=== PATIENT | female | born 1995 | race African-American/Black ===

== ENCOUNTER 2019-07-26 19:52 | Emergency (ER) | payer BC, OTHER ==
[~2019-07-26] VITALS: Ht 149 cm; Wt 53.0 kg
[2019-07-26 20:55] LABS: BILIRUBIN,URINE NEGATIVE (NEGATIVE); CLARITY,URINE CLEAR; COLOR,URINE YELLOW; GLUCOSE, URINE (UA) NEGATIVE (NEGATIVE); KETONES,URINE NEGATIVE (NEGATIVE); LEUKOCYTE ESTERASE ,URINE 1+ (NEGATIVE); NITRITE,URINE NEGATIVE (NEGATIVE); PH,URINE 7 (5-9); PROTEIN,URINE NEGATIVE (NEGATIVE)
--- NOTE | 2019-07-26 21:11 | ED Neurological Problem ---
General Chief Complaint: Neurological Problems Stated Complaint: TINGLING IN ARMS/HANDS/LEGS Nursing Triage Note: PATIENT STATES THAT SHE WENT TO [facility] MONDAY AND YESTERDAY FOR TINGLING IN LEGS. THEY PRESCRIBED PREDNIDONE AND TOLD HER IT COULD BE SCIATICA. SHE IS NOW HAVING A TINGLING AND BURNING SENSATION IS VARIOUS OTHER LOCATIONS ON HER BODY AND SHE IS VERY CONCERNED. DENIES ANY OTHER SYMPTOMS. Nursing Sepsis Screen: No Definite Risk Source: patient Exam Limitations: no limitations History of Present Illness Date Seen by Provider: Jul 26, 2019 Time Seen by Provider: 21:10 Initial Comments To ER with reports of tingling in her arms legs and hands. This began one week ago with tingling in the left leg only. She was seen at [facility] and given a prescription for steroids for presumed sciatica. The next day of the tingling sensation spread to the right leg and since then it now includes both hands from the shoulders down. She popped her neck a lot she states, she does have some pain at the base of the right side of her neck. No headaches no confusion. No other systemic symptoms such as weakness malaise shortness of breath fevers or chills. She does not know anything about her family history, she denies any known personal history of illnesses aside from iron deficiency anemia Timing/Duration: 1 week Severity: moderate Associated Symptoms: numbness in legs/feet Allergies and Home Medications Allergies Coded Allergies: No Known Drug Allergies (Unverified , 07/26/19) Patient Home Medication List Home Medication List Reviewed: Yes Review of Systems Review of Systems Constitutional: see HPI Eyes: No Symptoms Reported Ears, Nose, Mouth, Throat: no symptoms reported Respiratory: no symptoms reported Cardiovascular: no symptoms reported Genitourinary: no symptoms reported (the) Past Famnktk-Nnaocr-Wvpbcz Hx Patient Social History Alcohol Use: Occasionally Uses Recreational Drug Use: No Smoking Status: Never a Smoker 2nd Hand Smoke Exposure: No Recent Foreign Travel: No Contact w/Someone Who Travel: No Recent Infectious Disease Expo: No Recent Hopitalizations: No Seasonal Allergies Seasonal Allergies: No Past Medical History Surgeries: No Respiratory: No Cardiac: No Neurological: No Genitourinary: No Gastrointestinal: No Musculoskeletal: No Endocrine: No HEENT: No Cancer: No Psychosocial: No Integumentary: No Physical Exam Vital Signs Vital Signs - First Documented 07/26/19 20:08 Pulse 81 Resp 20 B/P (MAP) 142/88 (106) Pulse Ox 100 Capillary Refill : Less Than 3 Seconds Height, Weight, BMI Height: '" Weight: lbs. oz. kg; 23.00 BMI Method: General Appearance: WD/WN, no apparent distress, other (mentating well, very pleasant alert and oriented no distress) HEENT: PERRL/EOMI, normal ENT inspection Neck: non-tender, full range of motion Respiratory: normal breath sounds, no respiratory distress, no accessory muscle use Cardiovascular: regular rate, rhythm, no murmur Gastrointestinal: normal bowel sounds, non tender, soft Extremities: normal range of motion, non-tender Neurologic/Psychiatric: alert, normal mood/affect, oriented x 3 Crainal Nerves: normal hearing, normal speech, PERRL Skin: normal color, warm/dry Progress/Results/Core Measures Results/Orders Lab Results Laboratory Tests Test 07/26/19 20:34 07/26/19 21:11 Range/Units Urine Color YELLOW Urine Clarity CLEAR Urine pH 7 5-9 Urine Specific Woodson 1.010 L 1.016-1.022 Urine Protein NEGATIVE NEGATIVE Urine Glucose (UA) NEGATIVE NEGATIVE Urine Ketones NEGATIVE NEGATIVE Urine Nitrite NEGATIVE NEGATIVE Urine Bilirubin NEGATIVE NEGATIVE Urine Urobilinogen NORMAL NORMAL MG/DL Urine Leukocyte Esterase 1+ H NEGATIVE Urine RBC (Auto) NEGATIVE NEGATIVE Urine RBC NONE /HPF Urine WBC 2-5 /HPF Urine Squamous Epithelial Cells 2-5 /HPF Urine Crystals PRESENT H /LPF Urine Amorphous Sediment FEW MARLYS PHOSPHATE H /LPF Urine Bacteria TRACE /HPF Urine Casts NONE /LPF Urine Mucus NEGATIVE /LPF Urine Culture Indicated NO White Blood Count 4.6 4.3-11.0 10^3/uL Red Blood Count 3.79 L 4.35-5.85 10^6/uL Hemoglobin 7.3 L 11.5-16.0 G/DL Hematocrit 25 L 35-52 % Mean Corpuscular Volume 65 L 80-99 FL Mean Corpuscular Hemoglobin 19 L 25-34 PG Mean Corpuscular Hemoglobin Concent 30 L 32-36 G/DL Red Cell Distribution Width 18.9 H 10.0-14.5 % Platelet Count 526 H 130-400 10^3/uL Mean Platelet Volume 10.7 H 7.4-10.4 FL Neutrophils (%) (Auto) 46 42-75 % Lymphocytes (%) (Auto) 44 12-44 % Monocytes (%) (Auto) 8 0-12 % Eosinophils (%) (Auto) 2 0-10 % Basophils (%) (Auto) 0 0-10 % Neutrophils # (Auto) 2.1 1.8-7.8 X 10^3 Lymphocytes # (Auto) 2.0 1.0-4.0 X 10^3 Monocytes # (Auto) 0.4 0.0-1.0 X 10^3 Eosinophils # (Auto) 0.1 0.0-0.3 10^3/uL Basophils # (Auto) 0.0 0.0-0.1 10^3/uL Prothrombin Time 13.3 12.2-14.7 SEC INR Comment 1.0 0.8-1.4 Activated Partial Thromboplast Time 28 24-35 SEC Sodium Level 137 135-145 MMOL/L Potassium Level 3.8 3.6-5.0 MMOL/L Chloride Level 101 98-107 MMOL/L Carbon Dioxide Level 22 21-32 MMOL/L Anion Gap 14 5-14 MMOL/L Blood Urea Nitrogen 13 7-18 MG/DL Creatinine 0.78 0.60-1.30 MG/DL Estimat Glomerular Filtration Rate > 60 BUN/Creatinine Ratio 17 Glucose Level 103 70-105 MG/DL Calcium Level 9.9 8.5-10.1 MG/DL Corrected Calcium 9.6 8.5-10.1 MG/DL Total Bilirubin 0.2 0.1-1.0 MG/DL Aspartate Amino Transf (AST/SGOT) 13 5-34 U/L Alanine Aminotransferase (ALT/SGPT) 9 0-55 U/L Alkaline Phosphatase 56 40-136 U/L C-Reactive Protein High Sensitivity 0.03 0.00-0.50 MG/DL Total Protein 8.1 6.4-8.2 GM/DL Albumin 4.4 3.2-4.5 GM/DL Thyroid Stimulating Hormone (TSH) 3.68 0.35-4.94 UIU/ML Serum Test, Qualitative NEGATIVE NEGATIVE My Orders Orders - ABHISHEK STRAUSS APRN Cbc With Automated Diff (07/26/19 20:47) Hs C Reactive Protein (07/26/19 20:47) Comprehensive Metabolic Panel (07/26/19 20:47) Thyroid Stimulating Hormone (07/26/19 20:47) Ua Culture If Indicated (07/26/19 20:47) Ed Iv/Invasive Line Start (07/26/19 20:47) Hcg,Qualitative Serum (07/26/19 20:47) Ct Cervical Spine Wo (07/26/19 21:40) Anemia Analyzer (07/26/19 21:49) Partial Thromboplastin Time (07/26/19 21:49) Protime With Inr (07/26/19 21:49) Ferrous Sulfate Tablet (Feosol Tablet) (07/26/19 22:00) Vital Signs/I&O 07/26/19 20:08 Pulse 81 Resp 20 B/P (MAP) 142/88 (106) Pulse Ox 100 Blood Pressure Mean: 106 Departure Communication (Admissions) Discussed the case with Dr. Navarro. Blood transfusion not warranted as she is hemodynamically stable without shortness of breath or weakness, only complaint is of paresthesia. She has no hypotension or tachycardia. She reports that she is supposed to be on iron supplementation due to heavy periods but doesn't take it because it constipates her. She does take control simply for the reason of heavy vaginal bleeding with periods. Just moved here in the October of this year and follows tanya Malloy at [facility]. Impression Primary Impression: Microcytic anemia Additional Impression: Paresthesias Disposition: HOME, SELF-CARE Condition: Stable Departure-Patient Inst. Decision time for Depature: 22:04 Referrals: NO,LOCAL PHYSICIAN (PCP/Family) Primary Care Physician Patient Instructions: Paresthesias (DC), Anemia Caused by Low Iron Add. Discharge Instructions: 1. You must take your iron supplementation. Take this with orange juice to help with the absorption. Take a stool softener like Colace [id number] once daily to help soften her stools and prevent the associated constipation. You should have your blood work rechecked next week at [facility] to recheck your hemoglobin level. Return to ER in the meantime for any worsening symptoms shortness of breath fatigued or heavy bleeding. Scripts Ferrous Fumarate (Ferrimin 150) 456 Mg Tablet 456 MG PO DAILY, #30 TAB Prov: ABHISHEK STRAUSS APRN 07/26/19 Copy Copies To 1: NAM PULIDO PETER J APRN Jul 26, 2019 21:11
[2019-07-26 21:13] LABS: BACTERIA,URINE TRACE /HPF
[2019-07-26 21:14] LABS: AMORPHOUS SEDIMENT,UR FEW AMOR PHOSPHATE /LPF
[2019-07-26 21:17] LABS: BASOPHILS % (AUTO) 0 % (0-10); EOSINOPHILS # (AUTO) 0.1 10^3/uL (0.0-0.3); EOSINOPHILS % (AUTO) 2 % (0-10); HEMATOCRIT 25 % (35-52); HEMOGLOBIN 7.3 G/DL (11.5-16.0); LYMPHOCYTES % (AUTO) 44 % (12-44); MEAN CORPUSCULAR HEMOGLOBIN 19 PG (25-34); MEAN CORPUSCULAR HGB CONC 30 G/DL (32-36); MEAN CORPUSCULAR VOLUME 65 FL (80-99); MEAN PLATELET VOLUME 10.7 FL (7.4-10.4); MONOCYTES # (AUTO) 0.4 X 10^3 (0.0-1.0); MONOCYTES % (AUTO) 8 % (0-12); NEUTROPHILS # (AUTO) 2.1 X 10^3 (1.8-7.8); NEUTROPHILS % (AUTO) 46 % (42-75); PLATELET COUNT 526 10^3/uL (130-400); RED CELL DISTRIBUTION WIDTH 18.9 % (10.0-14.5); WHITE BLOOD COUNT 4.6 10^3/uL (4.3-11.0)
[2019-07-26 21:37] LABS: ALANINE AMINOTRANSFERASE 9 U/L (0-55); ALBUMIN 4.4 GM/DL (3.2-4.5); ALKALINE PHOSPHATASE 56 U/L (40-136); BILIRUBIN,TOTAL 0.2 MG/DL (0.1-1.0); BUN/CREATININE RATIO 17; CALCIUM 9.9 MG/DL (8.5-10.1); CARBON DIOXIDE 22 MMOL/L (21-32); CHLORIDE 101 MMOL/L (98-107); CREATININE SERUM 0.78 MG/DL (0.60-1.30); GFR ESTIMATED > 60; GLUCOSE 103 MG/DL (70-105); POTASSIUM 3.8 MMOL/L (3.6-5.0); SODIUM 137 MMOL/L (135-145); TOTAL PROTEIN 8.1 GM/DL (6.4-8.2)
--- NOTE | 2019-07-26 21:54 | NUR ---
PT RETURNS FROM CT DEPT.
--- NOTE | 2019-07-26 21:57 | Diagnostic Imaging Report ---
PROCEDURE: CT cervical spine without contrast. TECHNIQUE: Multiple contiguous axial images were obtained through the cervical spine without the use of intravenous contrast. Sagittal and coronal reformations were then performed. Auto Exposure Controls were utilized during the CT exam to meet ALARA standards for radiation dose reduction. INDICATION: Burning and tingling sensation throughout body. FINDINGS: Sagittal and coronal reformatted images show good alignment of the cervical spine. Body heights and disc spaces are well-maintained. Atlantoaxial joint appears normal. The facets show good alignment. There are no hypertrophic bony changes. No spinal stenosis. There are no fractures. The surrounding soft tissues appear normal. IMPRESSION: Negative CT scan of the cervical spine without contrast. Dictated by: Dictated on workstation # [id number]
[2019-07-26] MEDS ORDERED: FERROUS SULF 325 MG (IRON) TAB PO SCH (22:00)
[2019-07-26 22:03] LABS: PROTHROMBIN TIME PATIENT 13.3 SEC (12.2-14.7)
[2019-07-26] MEDS ORDERED: [UNRECOGNIZED DRUG - CODE] PO (22:20)
[2019-07-26 22:26] VITALS: BP 139/95
== END 2019-07-26 22:29 | disposition home or self-care (01) ==
LOC: ER 19:54
DX: D50.9 Iron deficiency anemia, unspecified (principal); R20.2 Paresthesia of skin
CPT/HCPCS: 36415; 72125; 80053; 81000; 84443; 84703; 85007; 85025; 85045; 85610; 85730; 86141

== ENCOUNTER 2019-10-18 15:38 | Outpatient (RCR) | payer BC ==
[2019-10-16 16:40] LABS: BASOPHILS % (AUTO) 0 % (0-10); EOSINOPHILS % (AUTO) 1 % (0-10); HEMATOCRIT 39 % (35-52); LYMPHOCYTES # (AUTO) 1.3 X 10^3 (1.0-4.0); LYMPHOCYTES % (AUTO) 38 % (12-44); MEAN CORPUSCULAR HEMOGLOBIN 28 PG (25-34); MEAN CORPUSCULAR HGB CONC 34 G/DL (32-36); MEAN CORPUSCULAR VOLUME 83 FL (80-99); MEAN PLATELET VOLUME 9.8 FL (7.4-10.4); MONOCYTES # (AUTO) 0.3 X 10^3 (0.0-1.0); MONOCYTES % (AUTO) 8 % (0-12); NEUTROPHILS # (AUTO) 1.8 X 10^3 (1.8-7.8); NEUTROPHILS % (AUTO) 53 % (42-75); PLATELET COUNT 198 10^3/uL (130-400); RED CELL DISTRIBUTION WIDTH 20.6 % (10.0-14.5); WHITE BLOOD COUNT 3.5 10^3/uL (4.3-11.0)
[2019-10-16 17:03] LABS: ALANINE AMINOTRANSFERASE 15 U/L (0-55); ALBUMIN 4.7 GM/DL (3.2-4.5); ALKALINE PHOSPHATASE 73 U/L (40-136); BILIRUBIN,TOTAL 0.2 MG/DL (0.1-1.0); BUN/CREATININE RATIO 14; CALCIUM 9.3 MG/DL (8.5-10.1); CARBON DIOXIDE 21 MMOL/L (21-32); CHLORIDE 106 MMOL/L (98-107); GFR ESTIMATED > 60; GLUCOSE 121 MG/DL (70-105); POTASSIUM 3.9 MMOL/L (3.6-5.0); SODIUM 136 MMOL/L (135-145); TOTAL PROTEIN 8.1 GM/DL (6.4-8.2)
[~2019-10-18 15:38] MED LIST: FERRIC CARBOXYMALTOSE (CANCER) 750 MG in NS (IVPB) CANCER CENTER 250 ML IV SCH; [UNRECOGNIZED DRUG - CODE] PO
[2019-11-13] MEDS ORDERED: PRD20T PO (22:37)
== END 2019-11-13 | disposition home or self-care (01) ==
LOC: ONC 15:38
PROVIDERS: ATTEND Internal Medicine Hematology & Oncology
DX: D50.0 Iron deficiency anemia secondary to blood loss (chronic) (principal)
CPT/HCPCS: 80053; 82728; 83540; 85025; 96365; 99213; 99214

== ENCOUNTER 2019-11-13 22:26 | Emergency (ER) | payer BC ==
[~2019-11-13] VITALS: Ht 150 cm; Wt 59.3 kg
[~2019-11-13 22:26] MED LIST changes: -FERRIC CARBOXYMALTOSE (CANCER) 750 MG in NS (IVPB) CANCER CENTER 250 ML IV SCH
--- NOTE | 2019-11-13 22:36 | ED Integumentary General ---
General Stated Complaint: RASH AFTER STARTING MED LAST NIGHT Source: patient Exam Limitations: no limitations History of Present Illness Date Seen by Provider: Nov 13, 2019 Time Seen by Provider: 22:34 Initial Comments Chemotherapy itchy rash to both forearms that began today after starting ibuprofen and "mucus relief" from [facility] for influenza A. Timing/Duration: this morning Severity: mild Associated Symptoms: rash Allergies and Home Medications Allergies Coded Allergies: No Known Drug Allergies (Unverified , 07/26/19) Home Medications Ferrous Fumarate 456 Mg Tablet, 456 MG PO DAILY Prescribed by: ABHISHEK STRAUSS on 07/26/190 Patient Home Medication List Home Medication List Reviewed: Yes Review of Systems Review of Systems Constitutional: see HPI EENTM: see HPI Respiratory: no symptoms reported Cardiovascular: no symptoms reported Genitourinary: no symptoms reported Musculoskeletal: no symptoms reported Skin: see HPI Psychiatric/Neurological: No Symptoms Reported Endocrine: No Symptoms Reported Past Ahnhyxi-Colbzo-Ctfays Hx Patient Social History 2nd Hand Smoke Exposure: No Recent Foreign Travel: No Contact w/Someone Who Travel: No Recent Hopitalizations: No Seasonal Allergies Seasonal Allergies: No Past Medical History Surgeries: No Respiratory: No Cardiac: No Neurological: No Genitourinary: No Gastrointestinal: No Musculoskeletal: No Endocrine: No HEENT: No Cancer: No Psychosocial: No Integumentary: No Physical Exam Vital Signs Capillary Refill : General Appearance: WD/WN, no apparent distress HEENT: PERRL/EOMI, normal ENT inspection Respiratory: no respiratory distress, no accessory muscle use Neurologic/Psychiatric: alert, normal mood/affect, oriented x 3 Skin: normal color, warm/dry Skin Problem Character: other (urticarial type rash to the volar aspect right elbow, right forearm, left wrist. No where else.) Progress/Results/Core Measures Results/Orders My Orders Orders - ABHISHEK STRAUSS APRN Diphenhydramine Tablet (Benadryl Tablet) (11/13/19 22:45) Prednisone Tablet (Deltasone Tablet) (11/13/19 22:45) Departure Impression Primary Impression: Urticaria Disposition: 01 HOME, SELF-CARE Condition: Stable Departure-Patient Inst. Decision time for Depature: 22:35 Referrals: STEVEN PINO APRN (PCP) Primary Care Physician Patient Instructions: Hives Add. Discharge Instructions: 1. Benadryl one tablet every 4 hours as needed for itching. Steroids as directed. Return to ER for any concerns or worsening. Stop taking the mucus relief medication. Scripts Prednisone (Prednisone) 20 Mg Tab 40 MG PO DAILY, #4 TAB 0 Refills Prov: ABHISHEK STRAUSS APRN 11/13/19 ABHISHEK STRAUSS APRN Nov 13, 2019 22:36
[2019-11-13] MEDS ORDERED: PRD20T PO (22:37)
[2019-11-13] MEDS ORDERED: diphenhydrAMINE 25 MG TAB (BENADRYL) PO ONE (22:45)
[2019-11-13] MEDS ORDERED: predniSONE 20 MG TAB PO ONE (22:45)
[2019-11-13 22:52] VITALS: BP 136/95
== END 2019-11-13 22:54 | disposition home or self-care (01) ==
LOC: EDUNIT# 22:26 → ER 22:27
DX: L50.9 Urticaria, unspecified (principal)
CPT/HCPCS: 99283

== ENCOUNTER 2019-12-20 15:09 | Outpatient (RCR) | payer BC ==
[2019-12-13 16:15] LABS: BASOPHILS % (AUTO) 0 % (0-10); EOSINOPHILS # (AUTO) 0.1 10^3/uL (0.0-0.3); EOSINOPHILS % (AUTO) 1 % (0-10); HEMATOCRIT 36 % (35-52); LYMPHOCYTES # (AUTO) 1.2 X 10^3 (1.0-4.0); LYMPHOCYTES % (AUTO) 27 % (12-44); MEAN CORPUSCULAR HEMOGLOBIN 30 PG (25-34); MEAN CORPUSCULAR HGB CONC 33 G/DL (32-36); MEAN CORPUSCULAR VOLUME 90 FL (80-99); MEAN PLATELET VOLUME 9.4 FL (7.4-10.4); MONOCYTES # (AUTO) 0.2 X 10^3 (0.0-1.0); MONOCYTES % (AUTO) 4 % (0-12); NEUTROPHILS # (AUTO) 3.2 X 10^3 (1.8-7.8); NEUTROPHILS % (AUTO) 68 % (42-75); PLATELET COUNT 265 10^3/uL (130-400); RED CELL DISTRIBUTION WIDTH 13.8 % (10.0-14.5); WHITE BLOOD COUNT 4.7 10^3/uL (4.3-11.0)
[2019-12-13 16:42] LABS: ALANINE AMINOTRANSFERASE 10 U/L (0-55); ALBUMIN 4.2 GM/DL (3.2-4.5); ALKALINE PHOSPHATASE 94 U/L (40-136); BILIRUBIN,TOTAL 0.3 MG/DL (0.1-1.0); BUN/CREATININE RATIO 19; CALCIUM 9.2 MG/DL (8.5-10.1); CARBON DIOXIDE 20 MMOL/L (21-32); CHLORIDE 106 MMOL/L (98-107); CREATININE SERUM 0.62 MG/DL (0.60-1.30); GFR ESTIMATED > 60; GLUCOSE 92 MG/DL (70-105); POTASSIUM 3.7 MMOL/L (3.6-5.0); SODIUM 138 MMOL/L (135-145); TOTAL PROTEIN 7.4 GM/DL (6.4-8.2)
[~2019-12-20 15:09] MED LIST changes: +PRD20T PO
== END 2020-03-12 | disposition home or self-care (01) ==
LOC: ONC 15:09
PROVIDERS: ATTEND Internal Medicine Hematology & Oncology
DX: D50.0 Iron deficiency anemia secondary to blood loss (chronic) (principal)
CPT/HCPCS: 80053; 82728; 85025; 99213